=== PATIENT | female | born 1960 | race Caucasian/White ===

== ENCOUNTER 2018-12-02 21:31 | Emergency (ER) | payer OTHER ==
[~2018-12-02] VITALS: Wt 56.9 kg
[2018-12-02 21:55] VITALS: BP 164/94; PULSE 65; RESP 18
--- NOTE | 2018-12-03 03:25 | ERD ---
ER Documentation Chief Complaint Chief Complaint cough x 3 months, more at nighttime. no sweat. no hemoptysis. HPI 58-year-old female presents for cough x3 months. Patient was seen at urgent care had a chest x-ray done and diagnosed with pulmonary calcifications. She was given an antibiotic shot in the urgent care center and was given a prescription for antibiotics, albuterol, Claritin. Patient was subsequently advised to come to the ER for further evaluation for the pulmonary calcifications. Patient states that the cough is dry. Denies hemoptysis. She denies weight loss. Denies chest pain or shortness of breath no other modifying factors noted. No treatment tried at home. ROS All systems reviewed and are negative except as per history of present illness. Allergies Allergies: Coded Allergies: No Known Drug Allergies (Verified Allergy, Unknown, 12/02/18) PMhx/Soc Medical and Surgical Hx: pt denies Medical Hx, pt denies Surgical Hx Hx Alcohol Use: No Hx Substance Use: No Hx Tobacco Use: No Smoking Status: Never smoker FmHx Family History: No coronary disease Physical Exam Vitals Vital Signs Date Temp Pulse Resp B/P (MAP) Pulse Ox O2 O2 Flow FiO2 Time Delivery Rate 12/02/18 98.6 65 18 164/94 100 21:55 (117) Physical Exam Const: No acute distress Resp: Clear to auscultation bilaterally Cardio: Regular rate and rhythm, no murmurs Abd: Soft, non tender, non distended. Normal bowel sounds Skin: No petechiae or rashes Back: No midline or flank tenderness Ext: No cyanosis, or edema Neur: Awake and alert Psych: Normal Mood and Affect Procedures/MDM Medical Decision Making: Differential diagnosis includes but not limited to asthma, GERD, postnasal drip, allergy Patient appeared well on physical exam. I tried calling urgent care center however was unable to reach the provider that made the diagnosis of pulmonary consultation. After discussion with the patient She wanted to repeat the chest x-ray to get a more accurate read. Chest X-ray 1V Interpreted by me: Soft Tissue: No acute abnormalities Bones: No acute abnormalities Mediastinum/Cardiac Silhouette/Lungs: No acute abnormalities Calcifications noted on the chest film. Patient was informed of her results. Patient advised to try Claritin for couple weeks, if that does not work try albuterol. Patient advised that she will need to follow with primary care physician. Patient advised to follow up with PCP in 1-2 days. Patient advised to return to ED for new or worsening symptoms. Patient stable on discharge from the ED. Disclaimer: Inadvertent spelling and grammatical errors are likely due to EHR/dictation software use and do not reflect on the overall quality of patient care. Also, please note that the electronic time recorded on this note does not necessarily reflect the actual time of the patient encounter. Departure Diagnosis: Primary Impression: Cough Condition: Fair Patient Instructions: Cough, Chronic, Uncertain Cause, (Adult) Referrals: COUNTS INCLUDE 234 BEDS AT THE [facility] YOU HAVE RECEIVED A MEDICAL SCREENING EXAM AND THE RESULTS INDICATE THAT YOU DO NOT HAVE A CONDITION THAT REQUIRES URGENT TREATMENT IN THE EMERGENCY DEPARTMENT. FURTHER EVALUATION AND TREATMENT OF YOUR CONDITION CAN WAIT UNTIL YOU ARE SEEN IN YOUR DOCTORS OFFICE WITHIN THE NEXT 1-2 DAYS. IT IS YOUR RESPONSIBILITY TO MAKE AN APPOINTMENT FOR FOLOW-UP CARE. IF YOU HAVE A PRIMARY DOCTOR --you should call your primary doctor and schedule an appointment IF YOU DO NOT HAVE A PRIMARY DOCTOR YOU CAN CALL OUR PHYSICIAN REFERRAL HOTLINE AT IF YOU CAN NOT AFFORD TO SEE A PHYSICIAN YOU CAN CHOSE FROM THE FOLLOWING [facility] [address] [facility]. [facility] [address] [facility] [address] [facility] [facility] [address] [facility] [facility] [address] [facility] [facility] [place] Additional Instructions: Call your primary care doctor TOMORROW for an appointment during the next 1-2 days.See the doctor sooner or return here if your condition worsens before your appointment time. Llame al doctor MAANA y rebecca cortez LI PARA DENTRO DE 1-2 NAVAS.Dgale a la secretaria que nosotros le instruimos hacer esta li.Avise o llame si heller condicin se empeora antes de la li. Regresa aqui si peor o no mejor. CHERELLE VICTORIA DO December 03, 2018 03:25
== END 2018-12-03 03:27 | disposition home or self-care (01) ==
LOC: FTE 21:31
DX: R05 Cough (principal)
CPT/HCPCS: 71046; Z7502